=== PATIENT | female | born 1990 | race Caucasian/White ===

== ENCOUNTER → 2023-03-24 13:54 | Outpatient (REF) | payer OTHER, SELFPAY | LOC: RAD 13:54 | PROVIDERS: ATTENDING PHYSICIAN Obstetrics & Gynecology | DX: O26.851 Spotting complicating pregnancy, first trimester (principal) | CPT/HCPCS: 76801; 76817 ==

== ENCOUNTER → 2023-04-06 09:24 | Outpatient (REF) | payer OTHER, SELFPAY | LOC: HWRAD 09:24 | PROVIDERS: ATTENDING PHYSICIAN Obstetrics & Gynecology; FAMILY PHYSICIAN Physician Assistant Medical | DX: O26.851 Spotting complicating pregnancy, first trimester (principal) | CPT/HCPCS: 76801; 76817 ==

== ENCOUNTER 2023-04-20 15:12 | Emergency (ER) | payer OTHER, SELFPAY ==
[2023-04-20 15:16] VITALS: BP 142/99
[2023-04-20 15:36] LABS: % Basophils 0.2 % (0-2); % Eosinophils 0.4 % (0-6); % Immature Granulocytes 0.4 % (0-0.5); % Monocytes 5.1 % (1.7-9.3); % Neutrophils 61.9 % (42.2-75.2); Absolute Lymphocytes 2.6 10^3/uL (1.2-3.4); Absolute Monocytes 0.4 10^3/uL (0.1-0.6); Absolute Neutrophils 5.1 10^3/uL (1.4-6.5); Hematocrit 36.7 % (37.0-47.0); Hemoglobin 12.7 g/dL (12.0-16.0); Mean Corp Hgb Conc. 34.6 g/dL (33.0-37.0); Mean Corpuscular Hgb 31.2 pg (27.0-31.0); Mean Corpuscular Volume 90.2 fL (81.0-99.0); Mean Platelet Volume 11.3 fL (7.4-10.4); Nucleated Red Blood Cells % 0 %; Platelet Count 166 10^3/uL (130-400); Red Blood Cell Count 4.07 10^6/uL (4.20-5.40); Red Cell Dist. Width 12.5 % (11.5-14.5); White Blood Cell Count 8.2 10^3/uL (4.8-10.8)
[2023-04-20 16:02] LABS: Troponin I < 0.012 ng/ml
[2023-04-20 16:09] LABS: ALT (SGPT) 15 U/L (0-35); AST (SGOT) 22 U/L (14-36); Albumin 4.4 g/dl (3.5-5.0); Alkaline Phosphatase 65 U/L (38-126); Blood Urea Nitrogen 11 mg/dl (7-17); Calcium 9.3 mg/dl (8.4-10.2); Carbon Dioxide 27 mmol/L (22-30); Chloride 103 mmol/L (98-107); Glucose 95 mg/dl (70-99); Sodium 138 mmol/L (135-145); Total Bilirubin 0.4 mg/dl (0.2-1.3); Total Protein 7.6 g/dl (6.3-8.2); eGFR > 60.00
[2023-04-20 18:42] VITALS: BMI 25.8
[2023-04-20] MEDS: NSS 1000 IV (18:44)
[2023-04-20 18:48] LABS: D-Dimer < 0.27 ug/mlFEU (0.00-0.50)
[2023-04-20 19:00] VITALS: BP 113/79
[2023-04-20 21:06] VITALS: BP 115/64
[2023-04-20 21:08] VITALS: BP 115/64
[2023-04-20 21:12] LABS: Urine Albumin Negative (Neg - Trace); Urine Bilirubin Negative (Negative); Urine Character Clear (Clear); Urine Color Yellow; Urine Glucose Negative (Negative); Urine Ketone Negative (Negative); Urine Leukocyte Trace (Negative); Urine Nitrite Negative (Negative); Urine Occult Blood 1+ (Negative); Urine Specific Gravity 1.015 (<1.030); Urine Urobilinogen Negative (Neg - 1+)
[2023-04-20 21:23] LABS: Urine Squamous Cell >30 /LPF (Few)
[2023-04-20 21:24] LABS: Urine Bacteria Few (Negative); Urine Red Blood Cell 0-2 /HPF (0-2)
--- NOTE | 2023-04-20 23:27 | ED.GENMED ---
History of Present Illness
General
Chief Complaint: Dizziness
Source: patient
Exam Limitations: none
Time Seen by Provider: 04/20/23 17:54
Nursing documentation reviewed up to this point in time: agreed with
Travel History
Have you had any contact with someone who has COVID-19?: No
Do you have any symptoms of coronavirus? Fever > 100 degrees, chills, cough, shortness of breath, sore throat, loss of taste or smell, muscle aches, or headache?: No
History of Present Illness
History of Present Illness:
Patient to ED with complaint of dizziness off and on for the past 2 weeks after having a miscarrage. States each episode lasts for approx 2-3 minutes and then resolves but will return off and on for approx 2 hours. Reports chest pain this
afternoon. No associated N/v/diaphoresis. Brought self to ED for eval. She is currently symptom free. Had a 5 minute episode of loss of vision and hearing in January. SHe was evaluated at another ED, no cause identified. No recurrence of these
symptoms.SHe has an appoitment with Neurology tomorrow.
Past History
Past History
ED Past Medical History: None
ED Past Surgical History: None
Social History
Tobacco: Non-smoker
Alcohol: Occasional
Drug: None
Review of Systems
Review of Systems
Allergies reviewed?: Yes
All Other Systems: ROS reviewed and negative except as documented in HPI and ROS
Constitutional: Reports no symptoms
EENT: Reports no symptoms
Respiratory: Reports no symptoms
Cardiac: Reports no symptoms
ABD/GI: Reports no symptoms
: Reports no symptoms
Musculoskeletal: Reports no symptoms
Skin: Reports no symptoms
Neurological: Reports dizzy
Psychiatric: Reports no symptoms
Phy Exam
General Physical Exam
General Presentation: well appearing and no apparent distress
General age: appears stated age
General Skin: warm and dry
General Habitus: normal
General Mental: alert
Cardiovascular Exam
Cardiovascular Exam: regular rate/rhythm and no edema
Gastrointestinal Exam
Gastrointestinal Exam: normal bowel sounds, non tender and soft
Neurological Exam
Neurological Exam: alert, oriented x3, no motor deficits, no sensory deficits, speech normal and normal gait
Musculoskeletal Exam
Musculoskeletal Exam: full ROM and neuro vasc intact
Skin Exam
Skin Exam: normal color, warm/dry and no rash
Psychiatric Exam
Psychiatric Exam: normal mood/affect
Course
Orders/Labs/Results
Orders:
Orders
04/20/23 15:19
Electrocardiogram (*1) Urgent
Reason for Study: Chest Pain
EKG- Treatment ONCE
04/20/23 15:27
Complete Blood Count/With Diff Urgent
Comprehensive Metabolic Panel Urgent
Troponin I Urgent
04/20/23 18:04
Pelvis (Non Obstetric) US [US Pelvis Only (non-obstetric)] Urgent
Comment:
Reason For Exam: miscarrage 2 weeks ago, bleeding, dizzy
04/20/23 18:25
D-Dimer Urgent
04/20/23 18:43
0.9% Sodium Chloride 1000 ml [Nss] 1,000 ml IV BOLUS
04/20/23 21:04
Urinalysis Reflex To Culture Urgent
Date Specimen was Collected: 04/20/23
Time Specimen was Collected: 21:03
Urine Microscopic Reflex Cult Urgent
Abnormal Lab Results
04/20/23 04/20/23
15:27 21:04
RBC 4.07 L 10^6/uL
(4.20-5.40)
Hct 36.7 L %
(37.0-47.0)
MCH 31.2 H pg
(27.0-31.0)
MPV 11.3 H fL
(7.4-10.4)
Creatinine 0.5 L mg/dL
(0.6-1.0)
Ur Occult Blood Reflex 1+ A
(Negative)
Leukocyte Esterase Rfl Trace A
(Negative)
Urine Bacteria (Reflex) Few A
(Negative)
04/20/23 15:27
04/20/23 15:27
Vital Signs
Initial and Last Documented VS:
Initial Vital Signs
Temp Pulse Resp BP Pulse Ox
98.8 F 83 18 142/99 97
04/20/23 15:16 04/20/23 15:16 04/20/23 15:16 04/20/23 15:16 04/20/23 15:16
Last Documented Vital Signs
Temp Pulse Resp BP Pulse Ox
98.8 F 78 18 115/64 98
04/20/23 15:16 04/20/23 21:08 04/20/23 15:16 04/20/23 21:08 04/20/23 19:00
*Radiology
Radiology exam reviewed: radiology read reviewed
*Pulse Oximetry
Patient hypoxic: no
*Critical Care Note
Total Time (30-74mins, 75-104mins- exclusive of procedures): Not Applicable
ED Attending Note
-
Portions of this chart may have been created with voice recognition software.� Occasional wrong word or��sound alike� substitutions may have occurred due to the inherent limitations of voice recognition software.
Discharge Plan
Departure
Patient Disposition: Home (Routine Discharge)
Date of Disposition: 04/20/23
Time of Disposition: 20:36
Patient with high blood pressure during this ER visit?: No
Condition: Good
Covid-19: Not Applicable
Discharge Problem:
Dizziness
Instructions: Dizziness
Prescriptions:
No Action
prenat.vits,adrien,bup-[id number] Tablet
1 tab PO DAILY
ibuprofen 600 mg Tablet
600 mg PO Q6HPRN PRN (Reason: moderate pain/cramps) Qty: 90 0RF
Referrals:
Larry Kidd MD [Family Provider] - Tomorrow
Interventions
Interventions:
*Risk Screen - Suicide Last Done: 04/20/23 15:18
*General Assessment Last Done: 04/20/23 15:18
*Neglect/Abuse Screening Last Done: 04/20/23 15:18
ED- Fall Risk Assessment Last Done: 04/20/23 19:11
*ED COVID-19 Vaccine History Last Done: 04/20/23 18:42
*Nursing Disposition Last Done: 04/20/23 21:08
ED- Neurological Assessment Last Done: 04/20/23 18:16
ED- Cardiac Assessment Last Done: 04/20/23 19:11
ED Swallowing Screen Last Done: 04/20/23 19:00
Discharge Date and Time
Discharge Date/Time: 04/20/23 21:11
== END 2023-04-20 21:11 | disposition home or self-care (01) ==
LOC: EMR 15:12
PROVIDERS: Nurse Practitioner; EMERGENCY PHYSICIAN Emergency Medicine; FAMILY PHYSICIAN Family Medicine; REFERRING PHYSICIAN Obstetrics & Gynecology
DX: R42 Dizziness and giddiness (principal); R07.9 Chest pain, unspecified
CPT/HCPCS: 99285; 96360; 76856; 80053; 81003; 81015; 84484; 85025; 85379; 93005

== ENCOUNTER → 2023-05-26 10:00 | Outpatient (REF) | payer OTHER, SELFPAY | LOC: MRI 3T 10:00 | PROVIDERS: ATTENDING PHYSICIAN Psychiatry & Neurology Neurology; FAMILY PHYSICIAN Family Medicine | DX: H54.7 Unspecified visual loss (principal) | CPT/HCPCS: 70553; A9575 ==